=== PATIENT | female | born 1965 | race Caucasian/White ===

== ENCOUNTER 2023-05-14 10:48 | Outpatient (CLI) | payer OTHER ==
[2023-05-14 11:05] LABS: BASOPHILS # (AUTO) 0.1 10^3/uL (0.0-0.1); EOSINOPHILS # (AUTO) 0.1 10^3/uL (0.0-0.7); EOSINOPHILS % (AUTO) 1.2 %; HCT - HEMATOCRIT 41.8 % (37.0-47.0); HGB - HEMOGLOBIN 13.4 g/dL (12.0-16.0); LYMPHOCYTES # (AUTO) 1.8 10^3/uL (1.5-3.5); LYMPHOCYTES % (AUTO) 34.6 %; MEAN CORPUSCULAR HGB CONC 32.1 g/dL (32.0-36.0); MEAN CORPUSCULAR VOLUME 84.3 fL (81.0-99.0); MEAN PLATELET VOLUME 10.4 fL (7.9-10.8); MONOCYTES # (AUTO) 0.4 10^3/uL (0.0-1.0); MONOCYTES % (AUTO) 8.4 %; NEUTROPHILS # (AUTO) 2.8 10^3/uL (1.5-6.6); NEUTROPHILS % (AUTO) 54.6 %; PLT - PLATELET COUNT 281 10^3/uL (130-450); RED BLOOD COUNT 4.96 10^6/uL (4.20-5.40); RED CELL DISTRIBUTION WIDTH 13.3 % (12.0-15.0); WHITE BLOOD COUNT 5.1 x10^3/uL (4.8-10.8)
[2023-05-14 11:24] LABS: ALBUMIN 4.3 g/dL (3.2-5.5); ALBUMIN/GLOBULIN RATIO 1.2 (1.0-2.2); ALKALINE PHOSPHATASE 92 IU/L (42-121); ALT ALANINE AMINOTRANSFERASE 23 IU/L (10-60); AST ASPARTATE AMINOTRANSFERASE 20 IU/L (10-42); BILIRUBIN,TOTAL 0.7 mg/dL (0.2-1.0); BUN - BLOOD UREA NITROGEN 15 mg/dL (6-20); CALCIUM 9.9 mg/dL (8.5-10.3); CARBON DIOXIDE - CO2 27 mmol/L (21-32); CHLORIDE 103 mmol/L (101-111); CHOL/HDL RATIO 2.2 (<4.4); CHOLESTEROL 212 mg/dL; CREATININE 0.7 mg/dL (0.4-1.0); GFR - MDRD 86 (>89); GLUCOSE 101 mg/dL (70-100); HDL CHOLESTEROL 95 mg/dL; LDL CHOLESTEROL,CALCULATED 108 mg/dL; LDL/HDL RATIO 1.1 (<4.4); LIPASE 28 U/L (22-51); POTASSIUM 4.1 mmol/L (3.5-5.0); SODIUM 137 mmol/L (135-145); TOTAL PROTEIN 7.8 g/dL (6.7-8.2); TRIGLYCERIDES 47 mg/dL; VLDL CHOLESTEROL 9 mg/dL
[2023-05-14 11:36] LABS: THYROID STIMULATING HORMONE 1.5 uIU/mL (0.34-5.60)
== END 2023-05-14 10:49 | disposition home or self-care (01) ==
LOC: LAB 10:48
PROVIDERS: ATTEND Physician Assistant
DX: Z13.9 Encounter for screening, unspecified (principal)
CPT/HCPCS: 36415; 80053; 80061; 83690; 83721; 84443; 85025

== ENCOUNTER 2024-03-19 11:28 | Outpatient (CLI) | payer OTHER ==
[2024-03-19 11:52] LABS: CREATININE 0.6 mg/dL (0.6-1.3); POTASSIUM 4.1 mmol/L (3.5-4.5)
== END 2024-03-19 11:29 | disposition home or self-care (01) ==
LOC: LAB 11:28
PROVIDERS: ATTEND Physician Assistant
DX: I10 Essential (primary) hypertension (principal)
CPT/HCPCS: 36415; 80048

== ENCOUNTER 2024-07-23 08:00 | Outpatient (CLI) | payer OTHER ==
--- NOTE | 2024-07-23 15:22 | XRAY Report ---
PROCEDURE: Elbow 3+V RT INDICATIONS: RIGHT ELBOW PAIN TECHNIQUE: 3 views of the elbow were acquired. COMPARISON: None. FINDINGS: Bones: No fractures or dislocations. No suspicious bony lesions. Soft tissues: No effusion. No suspicious soft tissue calcifications or masses. IMPRESSION: No acute bony abnormality or significant joint effusion. Reviewed by: Donnie Romero MD on 07/23/2024 3:21 PM PDT Approved by: Donnie Romero MD on 07/23/2024 3:21 PM PDT Station ID: [id number]
--- NOTE | 2024-07-23 15:25 | XRAY Report ---
PROCEDURE: Hand 3+V RT INDICATIONS: RIGHT HAND PAIN TECHNIQUE: 3 views of the hand(s) acquired. COMPARISON: None. FINDINGS: Bones: No fractures or dislocations. No suspicious bony lesions. Small, chronic, ununited fractur e fragment versus accessory ossicle at the ulnar styloid process. Soft tissues: No suspicious soft tissue calcifications or masses. IMPRESSION: No acute bony abnormality. Reviewed by: Donnie Romero MD on 07/23/2024 3:23 PM PDT Approved by: Donnie Romero MD on 07/23/2024 3:23 PM PDT Station ID: [id number]
--- NOTE | 2024-07-23 15:27 | XRAY Report ---
PROCEDURE: Wrist 3+V RT INDICATIONS: RIGHT WRIST PAIN TECHNIQUE: 3 views of the wrist were acquired. COMPARISON: None. FINDINGS: Bones: No fractures or dislocations. No suspicious bony lesions. Soft tissues: No suspicious soft tissue calcifications or masses. Mild volar soft tissue edema at the level of the proximal carpal row. IMPRESSION: Soft tissue edema at the volar aspect of the proximal carpal row without an acute fracture or disloca tion. If there is persistent pain, follow-up radiographs or an MRI of the wrist without contrast woul d be recommended. Reviewed by: Donnie Romero MD on 07/23/2024 3:25 PM PDT Approved by: Donnie Romero MD on 07/23/2024 3:25 PM PDT Station ID: [id number]
== END 2024-07-23 23:59 | disposition home or self-care (01) ==
LOC: DI.S 08:00
PROVIDERS: ATTEND Registered Nurse
DX: M25.521 Pain in right elbow (principal); M25.541 Pain in joints of right hand; M25.531 Pain in right wrist; R60.0 Localized edema